=== PATIENT | male | born 1960 | race Caucasian/White ===

== ENCOUNTER 2020-10-07 10:41 | Emergency (ER) | payer OTHER ==
[~2020-10-07] VITALS: Ht 172.7 cm; Wt 99.8 kg
[2020-10-07 10:50] VITALS: BP_SYST 153
[2020-10-07] MEDS ORDERED: NAPR-688 PO (11:55)
[2020-10-07] MEDS ORDERED: MED4 PO (11:55)
[2020-10-07] MEDS ORDERED: IBUPROFEN 600 MG TABLET PO ONE (12:00)
[2020-10-07 12:57] VITALS: BP_SYST 147
== END 2020-10-07 12:58 | disposition home or self-care (01) ==
LOC: SED 10:41
DX: M54.32 Sciatica, left side (principal)
CPT/HCPCS: 72170-TC; 73502; 99284